=== PATIENT | female | born 1985 | race Caucasian/White ===

== ENCOUNTER 2019-09-06 03:03 | Emergency (ER) | payer OTHER ==
[~2019-09-06 03:03] MED LIST: BACTRIM DS TAB1 EACH PO; CLEOCIN HCL150 MG PO; MICROGESTIN1 EAC1 PO; TRIAMCINOLONE A80 G2 TOP; VISTARIL 25 MG25 M1 PO; ZYRTEC10 M5 PO
[2019-09-06 04:24] VITALS: BP 0/0
== END 2019-09-06 04:30 ==
LOC: M.ERS 03:03
DX: Z02.89 Encounter for other administrative examinations (principal)